=== PATIENT | male | born 1985 | race African-American/Black ===

== ENCOUNTER 2018-09-18 09:41 | Emergency (ER) | payer MEDICAID ==
[~2018-09-18] VITALS: Ht 185.4 cm; Wt 107.3 kg
[2018-09-18 09:52] VITALS: BP 114/75
== END 2018-09-18 19:30 | disposition left against medical advice (07) ==
LOC: ER 09:41
DX: R05 Cough (principal); Z53.21 Procedure and treatment not carried out due to patient leaving prior to being seen by health care provider
CPT/HCPCS: 99281